=== PATIENT | male | born 1955 | race Caucasian/White ===

== ENCOUNTER 2019-05-13 07:11 | Outpatient (CLI) | payer OTHER ==
[~2019-05-13] VITALS: Ht 175.3 cm; Wt 140.6 kg
[~2019-05-13 07:11] MED LIST: COU3T PO; COU4T PO; DRON400T6 PO; FURO-150 PO; LOSA25TA96 PO; POTA20TA39 PO
[2019-05-13 07:36] LABS: ABG BASE EXCESS 0.6 mmol/L (-2.0-3.0); ABG HCO3 25.9 mmol/L (22.0-26.0); ABG OXYGEN SATURATION 95.5 % (95-98); ABG PH (T) 7.388 (7.350-7.450); ABG PO2 (T) 79.2 mmHg (83-108); ALLEN'S TEST Positive; FCOHb 0.8 % (0.5-1.5); FO2Hb 94.7 % (94-100); TOTAL HEMOGLOBIN 14.2 G/dl (14.0-17.9)
[2019-05-13] MEDS ORDERED: albumin 25% 100mL bottle x 1 IV PRN (07:55)
[2019-05-13] MEDS ORDERED: normal saline 1000ml 1,000 ML IV PRN (07:55)
[2019-05-13] MEDS ORDERED: albuterol 2.5 MG/3 ML nebule NEB PRN (07:55)
== END 2019-05-13 23:59 | disposition home or self-care (01) ==
LOC: RT 07:11
PROVIDERS: ATTEND Family Medicine
DX: J44.9 Chronic obstructive pulmonary disease, unspecified (principal); I11.0 Hypertensive heart disease with heart failure; I50.9 Heart failure, unspecified; Z79.899 Other long term (current) drug therapy; Z87.891 Personal history of nicotine dependence
CPT/HCPCS: 36600; 82803; 85018; 94060; 94727; 94729; 94760; J7030